=== PATIENT | female | born 1965 | race Caucasian/White ===

== ENCOUNTER → 2016-06-09 | Outpatient (CLI) | payer OTHER ==
--- NOTE | 2016-06-09 12:01 | MA ---
Screening Digital Mammogram With iCAD Analysis Clinical Indications: Routine screening. The patient has had a benign left breast biopsy. Technique: Standard cephalocaudal and mediolateral oblique projections are obtained. This examination is processed by the iCAD computer aided detection system. Comparison: May 2015, March 2015, November 2013, November 2012, September 2011, September 2010. Breast density: Type B; Scattered fibroglandular densities. Findings: CAD was reviewed. No masses, suspicious calcifications or other signs of malignancy are see n. There has been no significant change in the appearance of either breast. Impression: Negative mammogram. BI-RADS 1. Recommendation: Routine mammographic screening in one year as long as physical examination is negativ e[facility]ly [facility] will send a result letter to the patient. Negative mammography should not preclude additional workup of a clinically suspicious finding. The patient's information is entered into a reminder system with a target due date for her next mammo gram.
== END ==
LOC: FIMAGING 09:46
DX: Z12.31 Encounter for screening mammogram for malignant neoplasm of breast (principal)
CPT/HCPCS: G0202

== ENCOUNTER → 2017-06-12 | Outpatient (CLI) | payer OTHER | LOC: FIMAGING 15:32 | PROVIDERS: ATTEND Obstetrics & Gynecology Gynecology | DX: Z12.31 Encounter for screening mammogram for malignant neoplasm of breast (principal) ==

== ENCOUNTER → 2018-02-10 | Day surgery (SDC) | payer OTHER ==
[~2018-02-10] MED LIST: ASPIRIN EC 325 MG TAB PO ONE; ATROPINE SULFATE 1 MG/10 ML SYR IVP PRN; DIAZEPAM 5 MG TAB PO ONE; FAMOTIDINE 20 MG TAB PO ONE; HEPARIN 10,000 UNIT/10 ML MDV (1,000 UNIT/ML) ONE; HYDROCODONE/APAP 5/325 TAB PO PRN; IOPAMIDOL (ISOVUE-370) 150 ML BTL IV ONE; LIDOCAINE 1% 300 MG/30 ML SDV ONE; MIDAZOLAM 2 MG/2 ML VIAL ONE; NITROGLYCERIN 0.4 MG BTL SL PRN; NS 1,000 ML IV ONE; ONDANSETRON 4 MG/2 ML VIAL IVP PRN; OXYCODONE/APAP 5/325 TAB PO PRN; VERAPAMIL 5 MG/2 ML VIAL ONE; diphenhydrAMINE 25 MG CAP PO ONE; fentaNYL 100 MCG/2 ML INJ ONE
--- NOTE | 2018-02-10 09:13 | PDPROPOC ---
Sedation Plan of Care Sedation Plan of Care: vital signs stable, mental status noted, patient educated of risks, benefits, alternatives, patient can tolerate sedation ASA Classification: ASA 3 Planned drugs: fentanyl, midazolam Mallampati Score: Class 3 Mallampati Reference Image: Patient passed 3-3-2 rule?: Yes
--- NOTE | 2018-02-10 09:14 | PDHPUP ---
History & Physical Update H&P update statement: This history and physical update is based on an assessment of the patient which was completed after admission or registration (within 24 hours), but prior to the surgery/procedure. H&P update: H&P reviewed & patient examined (patient with intermittent chest discomfort...), no change in patient's condition since H&P completed
[2018-02-10 09:57] LABS: PLATELET COUNT 312 10^3/uL (150-400)
[2018-02-10 10:06] LABS: INR 0.97 (0.83-1.16); PROTIME(PATIENT) 13.1 SEC (12.0-15.0)
--- NOTE | 2018-02-10 13:21 | PDDXCAT ---
Diagnostic Cath Note - . Date: 02/10/18 Cutting Room Supervisor: Percy Indication: CCC Class III and IV angina on medical treatment, other (high risk stress test secondary to diffuse ST segment changes) - Procedure Access: left wrist Procedure: left heart catheterization, coronary angiography - Materials Left Heart Cath size: 5F Left Heart Cath materials: JL4.0, JR4.0, pigtail - Findings-Left Heart Catheterization LM: 5mm in size no flow limiting obstruction. ANTONIO III flow. The main bifurcates into an LAD and circumflex system. LAD: 3.0mm in size. There is calcification consistent with underlying atherosclerosis. Maximal luminal stenosis is 30 percent in the proximal LAD. A small diagonal vessel has a 40% stenosis near its takeoff from the LAD. There is ANTONIO III flow. LCX: 3.5mm in size and is a co-dominant vessel. No flow limiting obstruction, dissection or thrombus is identified. RCA: This is a small vessel at 2.25mm and is co-dominant. Luminal stenosis consistent with [place] vessel coronary disease in the proximal segment. Maximal luminal stenosis is approximately 20 % in the proximal vessel. EDP: 16mmHg. LVEF: 65%. Wall motion: On the LV gram there is normal LV systolic function. The EF is 65% . There are no resting segmental wall motion abnormalities. 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 There is no gradient on pullback across the aortic valve. There is no evidence of cy dissection or aneurysm formation. - Findings-Right Heart Catheterization AO: 123/69/75 Complications: NONE Estimated blood loss: <50ml Closure method: Angioseal Assessment: The patient has [place] coronary disease on the basis of a positive calcium score and the findings of today's angiogram. There were luminal irregularities consistent with underlying atherosclerosis. No flow limiting obstruction is identified. The left ventricle is normal in size and function without evidence of mitral regurgitation or aortic stenosis on the basis of today's examination. Plan: The patient has non-flow limiting coronary disease, which should be managed medically to achieve a Non-HDL Cholesterol of less than 100 mg/dL. Ideally the LDL should be treated to a level of less than 70mg/dL. Intervention: NONE
--- NOTE | 2018-02-11 11:56 | CPEKG ---
Test Reason : OPEN Blood Pressure : / mmHG Vent. Rate : 064 BPM Atrial Rate : 063 BPM P-R Int : 173 ms QRS Dur : 086 ms QT Int : 409 ms P-R-T Axes : 049 016 059 degrees QTc Int : 422 ms Sinus rhythm Low voltage, precordial leads Anteroseptal infarct, old Confirmed by Benny Lockwood ([id number]) on 02/11/2018 11:56:24 AM Referred By: Confirmed By:Benny Lockwood
== END | disposition home or self-care (01) ==
LOC: FCATH 09:07
PROVIDERS: ATTEND Internal Medicine Cardiovascular Disease
DX: I25.10 Atherosclerotic heart disease of native coronary artery without angina pectoris (principal); E78.5 Hyperlipidemia, unspecified; R94.31 Abnormal electrocardiogram [ECG] [EKG]; E78.01 Familial hypercholesterolemia; Z82.49 Family history of ischemic heart disease and other diseases of the circulatory system
CPT/HCPCS: J1644; J2250; J3010; Q9967

== ENCOUNTER → 2018-06-14 | Outpatient (CLI) | payer OTHER | LOC: FIMAGING 10:42 | PROVIDERS: ATTEND Physician Assistant | DX: Z12.31 Encounter for screening mammogram for malignant neoplasm of breast (principal) ==